=== PATIENT | female | born 1960 | race Two or more races ===

== ENCOUNTER → 2024-03-28 | Outpatient (CLI) | payer OTHER ==
[2024-03-28 13:35] VITALS: BP 146/87; PULSE 68; RESP 16; TEMP 98.3
--- NOTE | 2024-03-28 14:22 | P.SLEEP ---
History of Present Illness DATE: 03/28/2024 CONSULTATION/NEW PATIENT EVALUATION HISTORY OF PRESENT ILLNESS/SLEEP-WAKE EVALUATION: 64-year-old lady had been evaluated in the sleep center for possible obstructive sleep apnea hypopnea syndrome and significant excessive daytime sleepiness. 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 FALLING ASLEEP: No problems with falling asleep. DURING SLEEP: Patient snores and has witnessed episodes of possible stop breathing during the sleep by her . Positive history of restless leg symptoms. No history of hypnogogical hallucinations, sleep paralysis, or cataplexy. DURING THE DAY/WAKE STATE: Patient wake up tired, has difficulties to pay attention, falling asleep during wake time. [place] sleepiness scale is in extremely high range of 20. Patient takes usually 1 nap, easily may take several naps. PAST MEDICAL HISTORY: Asthma, acid reflux, allergy, hypothyroidism. PAST SURGICAL HISTORY: Bilateral knee arthroscopic surgery, left shoulder arthroscopic surgery, appendectomy in 2019. MEDICATIONS: Please see below. SOCIAL HISTORY: Please see below. FAMILY HISTORY: Please see below. REVIEW OF SYSTEMS: Snoring, significant sleepiness. No fevers. No double vision. No recent chest pain. No shortness of breath. No abdominal pain. No bleeding episodes. No blood in urine. No seizure episodes. PHYSICAL EXAMINATION: GENERAL: A pleasant patient without any distress. VITAL SIGNS: Please see below, weight 203 pounds, BMI 33.7. HEENT: PERRLA, EOMI. Evaluation of oropharynx showed tongue protrudes midline, low position of soft palate Mallampati 4, retrognathia about 2 mm, restriction of nasal breathing. NECK: Supple. No JVD. Thyroid is not palpable. 13.5 inches in circumference. LUNGS: Clear to percussion and to auscultation. Good air exchange. No wheezing or rhonchi. HEART: S1, S2 regular. No murmurs, gallops or rubs. ABDOMEN: Soft and nontender. Bowel sounds are present. No organomegaly appreciated. EXTREMITIES: No clubbing or cyanosis. SOCIAL MEDIA EXECUTIVE: Awake, alert, and oriented x3. Cranial nerves 2 to 7 intact. There is no fasciculation or atrophy noted. No focal deficits observed. ASSESSMENT: 1. Snoring, witnessed episodes of possible stop breathing during the sleep, extremely low position of soft palate Mallampati 4, retrognathia, restriction of nasal breathing, significant sleepiness with very high [place] Sleepiness Scale. Obstructive sleep apnea hypopnea syndrome. 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 3. Significant excessive sleepiness with [place] Sleepiness Scale of 20 dictate necessity to include narcolepsy and idiopathic hypersomnia in differential diagnosis. 4. Mild obesity, BMI 33.7. 5 hypothyroidism. 6 . Asthma. 7. Allergy. 8. Acid reflux. 9 . Status post bilateral knee arthroscopic surgery. 10. Status post left shoulder arthroscopic surgery. 11. Status post appendectomy in 2019. PLAN: 1. Polysomnography for evaluation of patient's breathing during sleep. Multiple sleep latency test if sleep study will be negative for obstructive sleep apnea hypopnea syndrome. 2. Following plan after reading sleep study. 3. Preferable position during sleep on the side. 4. No driving if patient feels any sleepiness. Patient is aware of civil and criminal liability for unsafe driving. 5. Sleep hygiene with regular sleep time for at least 7.5-8 hours. 6. Watching weight. Thank you very much for referring this patient for consultation. Sincerely, John Donohue MD, PhD, FAASM. Diplomat of [place] [employer], Sleep Medicine Board by [place] [employer] [employer] Junior Web Developer of [facility] [place] cc: Padmaja Lange [facility] Past Medical History Past Medical History: Asthma, GERD/Reflux, Thyroid Disorder Additional Past Medical History / Comment(s): Allergic Rhinitis, Hypoglycemia History of Any Multi-Drug Resistant Organisms: None Reported Past Surgical History: Orthopedic Surgery, Tubal Ligation Additional Past Surgical History / Comment(s): Cyst Removed from neck Past Anesthesia/Blood Transfusion Reactions: No Reported Reaction Past Psychological History: No Psychological Hx Reported Smoking Status: Never smoker Past Drug Use History: None Reported - Past Family History Father Family Medical History: Coronary Artery Disease (CAD), Hypertension Additional Family Medical History / Comment(s): snoring Mother Family Medical History: Thyroid Disorder Additional Family Medical History / Comment(s): Hypoglycemia, Mental Illness, Alzheimers Sister(s) Family Medical History: Thyroid Disorder Medications and Allergies Home Medications Medication Instructions Recorded Confirmed Type Aspirin EC [Ecotrin Low Dose] 81 mg PO DAILY 03/28/24 03/28/24 History Beclomethasone Dipropionate [Qvar See Rx Instructions .ROUTE .COMPLEX 03/28/24 03/28/24 History 40 mcg Redihaler] Benzonatate 100 mg PO TID PRN 03/28/24 03/28/24 History Clarithromycin [Biaxin] 500 mg PO BID 03/28/24 03/28/24 History Esomeprazole Magnesium [NexIUM] 40 mg PO DAILY 03/28/24 03/28/24 History Lactobacillus Acidophilus 1 each PO BID 03/28/24 03/28/24 History [Florajen Acidophilus] Levothyroxine Sodium [Synthroid] 112 mcg PO DAILY 03/28/24 03/28/24 History Loratadine [Claritin] 10 mg PO DAILY 03/28/24 03/28/24 History Montelukast [Singulair] 10 mg PO DAILY 03/28/24 03/28/24 History Triamcinolone Acetonide [Nasacort] 1 spray EA NOSTRIL DAILY 03/28/24 03/28/24 History Vitamin B Complex 1 each PO BID 03/28/24 03/28/24 History predniSONE 0 mg PO DIRECTED 03/28/24 03/28/24 History Physical Exam Vitals: Vital Signs Temp Pulse Resp BP Pulse Ox 03/28/24 13:34 98.3 F 68 16 146/87 96 Intake and Output 03/27/24 03/28/24 03/28/24 22:59 06:59 14:59 Other: Weight 92.079 kg Sleep Note - Sleep Data ESS Total: 20 - Sleep Note Sleep Note: Temperature: 98.3 F Pulse Rate: 68 Respiratory Rate: 16 Blood Pressure: 146/87 SpO2: 96 Height: 5 ft 5 in Weight: 92.079 kg BMI: Neck Circumference: 13.5
== END ==
LOC: 3 N SLEEP 13:04
PROVIDERS: ATTEND Internal Medicine
DX: G47.33 Obstructive sleep apnea (adult) (pediatric) (principal); R06.83 Snoring; E66.9 Obesity, unspecified; E03.9 Hypothyroidism, unspecified; J45.909 Unspecified asthma, uncomplicated; K21.9 Gastro-esophageal reflux disease without esophagitis; Z91.09 Other allergy status, other than to drugs and biological substances; Z68.33 Body mass index [BMI] 33.0-33.9, adult; Z98.890 Other specified postprocedural states; Z96.612 Presence of left artificial shoulder joint; Z48.815 Encounter for surgical aftercare following surgery on the digestive system
CPT/HCPCS: 99202

== ENCOUNTER 2024-06-04 19:49 | Outpatient (CLI) | payer OTHER ==
--- NOTE | 2024-06-07 11:41 | P.PCN ---
Description of Procedure: POLYSOMNOGRAPHY REPORT PROCEDURE(S)/DATE(S): Polysomnography 06/04/2024 CLINICAL: Patient has been seen in the sleep center for evaluation of obstructive sleep apnea-hypopnea syndrome. Please see my consultation. Sleep study has been done for evaluation of patient breathing during the sleep. PROCEDURE: The standard montage for clinical polysomnography included the electroencephalogram, the electrooculogram, the mentalis surface electromyography and Lead II cardiography. The respiratory battery consisted of measurements of nasal/buccal air flow, pressure transducer measurements from nose, thoracic and/or abdominal effort and intercostal surface electromyography. Video monitoring has been done to check for any parasomnia events. Nocturnal oxyhemoglobin saturations were obtained by finger oximetry. Step-marshall titration with positive airway pressure was utilized to control the respiratory events, if necessary. RESULTS: During the diagnostic sleep study sleep efficiency was significantly decreased to 71.7%. Latency to sleep onset was prolonged to 32 min. Sleep architecture showed stage NI was normal 7.0%, Delta sleep was slightly short 4.3%, REM sleep was slightly decreased to 17.6%. Respiratory channel showed 7 apneas,, 54 hypopneas with lowest oxygen level 72%. Total apnea hypopnea index was 12.5. Heart rate was in the range between 45 and 101, average 66. EMG showed 0 periodic limb movements. IMPRESSIONS: 1. Obstructive sleep apnea hypopnea syndrome mild range. Patient presents with symptoms of significant excessive daytime sleepiness with [place] Sleepiness Scale of 20. 2. No significant periodic limb movements have been documented. Please see other impressions from consultation PLAN: 1. The patient will have AutoPAP treatment for correction of respiratory abnormalities during the sleep. 2. Losing weight program. 3. Sleep hygiene with regular time in bed for at least 7-1/2 hours. 4. No driving if feeling sleepiness. 5. I will see patient for follow-up visit to check compliance with treatment, clinical response on treatment and to make any necessary adjustments related to mask fitting, pressure and humidification. Thank you very much for allowing me to participate in the management of your patient. Sincerely, John Donohue MD, PhD, FAASM. Diplomat of [place] [employer], Sleep Medicine Board by [employer] Extruding Department Supervisor of [facility] [place] cc: Stephanie Lange [facility]-
== END 2024-06-05 05:52 | disposition home or self-care (01) ==
LOC: 3 N SLEEP 19:49
PROVIDERS: ATTEND Internal Medicine
DX: G47.33 Obstructive sleep apnea (adult) (pediatric) (principal); G47.419 Narcolepsy without cataplexy
CPT/HCPCS: 95810